=== PATIENT | male | born 1935 | race Caucasian/White ===

== ENCOUNTER → 2019-03-11 08:53 | Day surgery (SDC) | payer MEDICARE ==
[~2019-03-11 08:53] MED LIST: Atropine 1MG/ML INJ* 1 ML VIAL ONE; Buffered Lidocaine 1% SYRIN* 1 ML/SYRINGE INTRADERM ONE; Bupivacaine 0.25% SDV PF* 10 ML VIAL INJ ONE; Dexamethasone IV* 4 MG/ML 1 ML (4 MG) IV SLOW PU ONE; Dexamethasone IV* 4 MG/ML 1 ML (4 MG) ONE; Glycopyrrolate IV* 0.2 MG/ML 1 ML VIAL ONE; Ketorolac INJ* 30 MG/ML 1 ML VIAL ONE; Lactated Ringers 1000 ML Bag* 1,000 ML IV SCH; Lidocaine 2% PF * 5 ML VIAL ONE; Midazolam* 1 MG/ML 2 ML VIAL (2 MG) ONE; Naloxone* 0.4 MG/ML 1 ML VIAL IV PRN; Ondansetron INJ* 2 MG/ML VIAL ONE; Propofol* 10 MG/ML 20 ML BTL ONE; fentaNYL* 50 MCG/ML 2 ML VIAL (100 MCG VIAL) ONE
[2019-03-11 12:44] VITALS: BP 146/78
--- NOTE | 2019-03-11 21:56 | OP ---
DATE OF OPERATION: 03/11/19 - [facility] DATE OF : 33 SURGEON: Marty Mosquera MD. PBX REPAIRER: PAULINE Murphy. ANESTHESIOLOGIST: Dr. Castro. ANESTHESIA: General. PRE-OP DIAGNOSIS: Right carpal tunnel syndrome. POST-OP DIAGNOSIS: Right carpal tunnel syndrome. OPERATIVE PROCEDURE: Right endoscopic carpal tunnel release. INDICATIONS: Mr. Umanzor is 83. He has pretty significant carpal tunnel syndrome. We had talked about the risks and benefits and he wanted to proceed. ESTIMATED BLOOD LOSS: 2 mL. COMPLICATIONS: None. FINDINGS: See above and below. DESCRIPTION OF PROCEDURE: Mr. Umanzor was seen in the preoperative holding area and the correct side, site, and procedure were identified. We came back to the operating room. The arm was prepped and draped in the usual fashion and a time- out was performed. The arm was exsanguinated with the Esmarch and the tourniquet was inflated. I then made a 1 cm incision just ulnar to the palmaris longus tendon. Dissection was carried down and the distal antebrachial fascia was split transversally bluntly with tenotomy scissors and a 2-prong skin hook was placed. The carpal tunnel was then dried out and dilated using the Q-tip and the dilators. I then introduced the Micro-Aire endoscopic system when I had it in the appropriate location. I elevated the blade and carried out the release from distal to proximal. Once I completed and checked to make sure the release was complete, I went ahead and released the distal antebrachial fascia proximally with the tenotomy scissors. The wound was irrigated out. Skin was closed with 4-0 Prolene suture and Steri-Strips. A soft dressing was applied and he was taken to the recovery room in stable condition. [id number] #: [id number] [facility]
== END | disposition home or self-care (01) ==
LOC: OR 08:53
PROVIDERS: ATTEND Orthopaedic Surgery Hand Surgery
DX: G56.01 Carpal tunnel syndrome, right upper limb (principal); G57.33 Lesion of lateral popliteal nerve, bilateral lower limbs; K21.9 Gastro-esophageal reflux disease without esophagitis; G40.89 Other seizures; Z87.891 Personal history of nicotine dependence
CPT/HCPCS: J0461; J1100; J1885; J2250; J2405; J2704; J3010; J3490